=== PATIENT | female | born 1950 | race Caucasian/White ===

== ENCOUNTER → 2016-05-05 | Outpatient (CLI) | payer BC, MEDICARE ==
--- NOTE | 2016-05-05 14:50 | REPMRS ---
Patient History The patient states she had a clinical breast exam in 04/2016. Patient is postmenopausal and has history of cervical cancer at age 48. Family history of uterine cancer in maternal aunt at age 50 or over. Digital Woman Screen Mammo: May 05, 2016 - Exam #: [id number] Bilateral CC and MLO view(s) were taken. Technologist: Marya Arnold, Technologist Prior study comparison: March 27, 2015, bilateral digital mammo screening bilat, performed at [facility]. November 27, 2014, left breast digital mammo diagnostic unilateral, performed at [facility]. March 11, 2014, digital woman screen mammo performed at [facility]. FINDINGS: The breast tissue is heterogeneously dense. This may lower the sensitivity of mammography. There is a moderate amount of heterogeneously dense fibroglandular tissue which is fairly symmetric. There is no interval development of dominant mass, architectural distortion, or clustered microcalcification typical of malignancy. There has been no change in the appearance of the mammogram from the prior studies. ASSESSMENT: BI-RADS/ACR category 1 mammogram. Negative. Recommendation Routine screening mammogram of both breasts in 1 year (for women over age 40). This mammogram was interpreted with the aid of an FDA-approved computer-aided dectection system. Electronically Signed By: Pratik Herron MD 05/05/16 [id number]
== END ==
LOC: M WHC 13:12
PROVIDERS: ATTEND Nurse Practitioner Family
DX: Z12.31 Encounter for screening mammogram for malignant neoplasm of breast (principal)

== ENCOUNTER 2017-02-22 08:20 | Emergency (ER) | payer BC, MEDICARE ==
[~2017-02-22] VITALS: Ht 160 cm; Wt 79.5 kg
[2017-02-22] MEDS ORDERED: ATOR1TAB19 (08:32)
[2017-02-22] MEDS ORDERED: PARO20TA3 (08:32)
[2017-02-22 09:21] LABS: BASO # 0.1 10^3/uL (0.0-0.2); BASO % 0.8 % (0.0-1.0); EOS # 0.2 10^3/uL (0.0-0.50); EOS % 2.3 % (0.0-3.0); IMMATURE GRANULOCYTE % 0.2 % (0-0); LYMPH # 2.3 10^3/uL (1.5-4.5); LYMPH % 36.3 % (24.0-44.0); MEAN CORPUSCULAR HEMOGLOBIN 31.4 pg (27.0-33.0); MEAN CORPUSCULAR HGB CONC 33.4 g/dl (32.0-36.5); MONO # 0.4 10^3/uL (0.0-0.8); MONO % 5.7 % (0.0-5.0); NEUTROPHILS # 3.5 10^3/uL (1.8-7.7); NEUTROPHILS % 54.7 % (36.0-66.0); PLATELET COUNT, AUTOMATED 299 10^3/uL (150-450); RED CELL DISTRIBUTION WIDTH 12.4 % (11.5-14.5); WHITE BLOOD COUNT 6.5 10^3/uL (4.0-10.0)
[2017-02-22 09:44] LABS: ALBUMIN 4.1 GM/DL (3.2-5.2); ALBUMIN/GLOBULIN RATIO 1.14 (1.00-1.93); ALKALINE PHOSPHATASE 102 U/L (45-117); ALT/SGPT 56 U/L (12-78); ANION GAP 7 MEQ/L (8-16); AST/SGOT 23 U/L (7-37); BILIRUBIN,DIRECT < 0.1 MG/DL (0.0-0.2); BILIRUBIN,TOTAL 0.4 MG/DL (0.2-1.0); BLOOD UREA NITROGEN 18 MG/DL (7-18); CALCIUM LEVEL 9.3 MG/DL (8.8-10.2); CARBON DIOXIDE LEVEL 26 MEQ/L (21-32); CHLORIDE LEVEL 109 MEQ/L (98-107); CREATININE FOR GFR 0.78 MG/DL (0.55-1.02); GLOMERULAR FILTRATION RATE > 60.0 (>45); GLUCOSE, FASTING 104 MG/DL (80-110); POTASSIUM SERUM 4.1 MEQ/L (3.5-5.1); SODIUM LEVEL 142 MEQ/L (136-145); TOTAL PROTEIN 7.7 GM/DL (6.4-8.2)
[2017-02-22 12:20] VITALS: BP 142/78
--- NOTE | 2017-02-22 14:22 | ECGEPIP ---
Stationary ECG Study [facility] - ED Test Date: 2017-02-22 Pat Name: SUSAN MEDEROS Department: Room: - Gender: F Machine Dyer: YESICA : 1950 Requested By: SEVERIANO Aburto Order Number: [id number] Reading MD: Tessa Huggins Measurements Intervals [place] Rate: 84 P: 58 NV: 129 QRS: 16 QRSD: 89 T: 45 QT: 404 QTc: 479 Interpretive Statements SINUS RHYTHM POSSIBLE RIGHT VENTRICULAR CONDUCTION DELAY NSTTW ABNORMALITY INCREASED RATE 05/24/12 Electronically Signed On 02-22-2017 14:22:10 EST by Tessa Huggins
== END 2017-02-22 12:37 | disposition home or self-care (01) ==
LOC: M ED 08:20
DX: R11.2 Nausea with vomiting, unspecified (principal); R19.7 Diarrhea, unspecified; F41.1 Generalized anxiety disorder; R94.31 Abnormal electrocardiogram [ECG] [EKG]; I10 Essential (primary) hypertension; E78.5 Hyperlipidemia, unspecified; F43.10 Post-traumatic stress disorder, unspecified; F41.9 Anxiety disorder, unspecified; F32.9 Major depressive disorder, single episode, unspecified; Z79.899 Other long term (current) drug therapy; Z91.018 Allergy to other foods; Z91.013 Allergy to seafood; Z88.7 Allergy status to serum and vaccine

== ENCOUNTER → 2017-02-23 | Outpatient (REF) | payer BC, MEDICARE ==
[~2017-02-23] MED LIST: ATOR1TAB19; PARO20TA3
== END ==
LOC: M LAB REF 17:01
PROVIDERS: ATTEND Nurse Practitioner Adult Health
DX: R35.0 Frequency of micturition (principal)

== ENCOUNTER → 2019-10-18 | Outpatient (REF) | payer MEDICARE ==
[~2019-10-18] MED LIST changes: +AMLO1TAB24; +METO1TAB32; +VENTAER
== END ==
LOC: M LAB REF 16:15
PROVIDERS: ATTEND Nurse Practitioner Adult Health
DX: R11.2 Nausea with vomiting, unspecified (principal); R19.7 Diarrhea, unspecified; R10.11 Right upper quadrant pain

== ENCOUNTER → 2020-01-27 | Outpatient (REF) | payer MEDICARE | LOC: M LAB REF 16:15 | PROVIDERS: ATTEND Nurse Practitioner Adult Health | DX: R35.0 Frequency of micturition (principal) ==

== ENCOUNTER → 2020-04-15 | Outpatient (CLI) | payer MEDICARE ==
[~2020-04-15] MED LIST changes: +BAYE81TA10 PO; +BUSP10TA; +HYDR12.55; +MONT5TAB2; +ROSU10TA6
== END ==
LOC: M LABSMTC 11:40
PROVIDERS: ATTEND Anesthesiology
DX: Z01.812 Encounter for preprocedural laboratory examination (principal); Z20.822 Contact with and (suspected) exposure to COVID-19

== ENCOUNTER 2020-04-20 10:03 | Day surgery (SDC) | payer MEDICARE ==
[~2020-04-20] VITALS: Ht 160 cm; Wt 80.0 kg
[~2020-04-20 10:03] MED LIST changes: +NS 1,000 ML IV ONE
[2020-04-20] MEDS ORDERED: LIDOCAINE 2% 100MG/5ML SDV (FOR ANES.) As Ordered ONE (11:22)
[2020-04-20] MEDS ORDERED: propofoL 200 MG/20 ML VIAL As Ordered ONE (11:22)
--- NOTE | 2020-04-20 11:30 | ROOR ---
Patient Name: Nikki Huertas Procedure Date: 04/20/2020 10:57 AM Date of : 1950 Age: 69 Room: [facility] Gender: Female Note Status: Finalized Procedure: Colonoscopy Indications: Screening for colorectal malignant neoplasm Providers: Odell ALFONSO MD Referring MD: VANIA SAM JR, MD Requesting Provider: Medicines: Monitored Anesthesia Care Complications: No immediate complications. Procedure: Pre-Anesthesia Assessment: - The heart rate, respiratory rate, oxygen saturations, blood pressure, adequacy of pulmonary ventilation, and response to care were monitored throughout the procedure. The Colonoscope was introduced through the anus and advanced to the terminal ileum, with identification of the appendiceal orifice and IC valve. The colonoscopy was performed without difficulty. The patient tolerated the procedure well. The quality of the bowel preparation was good. Findings: The perianal and digital rectal examinations were normal. Three sessile polyps were found in the sigmoid colon, splenic flexure and ascending colon. The polyps were diminutive in size. These polyps were removed with a cold snare. Resection and retrieval were complete. Multiple small-mouthed diverticula were found in the sigmoid colon. Small Internal Hemorrhoids. The exam was otherwise without abnormality on direct and retroflexion views. Impression: - Three diminutive polyps in the sigmoid colon, at the splenic flexure and in the ascending colon, removed with a cold snare. Resected and retrieved. - Diverticulosis in the sigmoid colon. - Small Internal Hemorrhoids. - The examination was otherwise normal on direct and retroflexion views. Recommendation: - Repeat colonoscopy in 5 years for surveillance. Procedure Code(s): --- Professional --- 81229, Colonoscopy, flexible; with removal of tumor(s), polyp(s), or other lesion(s) by snare technique Diagnosis Code(s): --- Professional --- K57.30, Diverticulosis of large intestine without perforation or abscess without bleeding K63.5, Polyp of colon Z12.11, Encounter for screening for malignant neoplasm of colon CPT copyright 2019 [employer]. All rights reserved. The codes documented in this report are preliminary and upon overhead crane operator review may be revised to meet current compliance requirements. Odell Alfonso MD Odell ALFONSO MD 04/20/2020 11:30:42 AM Electronically signed by Odell ALFONSO MD Number of Addenda: 0 Note Initiated On: 04/20/2020 10:57 AM Estimated Blood Loss: Estimated blood loss: none.
[2020-04-20 11:55] VITALS: BP 166/93
== END 2020-04-20 12:00 | disposition home or self-care (01) ==
LOC: M OPP 10:03
PROVIDERS: ATTEND Internal Medicine Gastroenterology
DX: Z12.11 Encounter for screening for malignant neoplasm of colon (principal); K63.5 Polyp of colon; K57.30 Diverticulosis of large intestine without perforation or abscess without bleeding; K64.8 Other hemorrhoids; I10 Essential (primary) hypertension; E78.5 Hyperlipidemia, unspecified; F32.9 Major depressive disorder, single episode, unspecified; F43.10 Post-traumatic stress disorder, unspecified; Z86.59 Personal history of other mental and behavioral disorders; Z88.6 Allergy status to analgesic agent; Z91.013 Allergy to seafood; Z91.018 Allergy to other foods; Z79.82 Long term (current) use of aspirin; Z79.899 Other long term (current) drug therapy; Z85.42 Personal history of malignant neoplasm of other parts of uterus

== ENCOUNTER → 2020-07-21 | Outpatient (CLI) | payer MEDICARE ==
[~2020-07-21] MED LIST changes: +MONT10TA10; -MONT5TAB2; -NS 1,000 ML IV ONE
--- NOTE | 2020-07-21 11:00 | REP ---
INDICATION: PAIN COMPARISON: None. TECHNIQUE: Internal rotation, external rotation, and Y view. FINDINGS: Advanced osteoarthritic degenerative changes are appreciated. Findings include osteophytosis and cortical irregularities at the acromioclavicular joint as well as involving the glenohumeral joint. 8 mm curvilinear corticated loose body identified adjacent to the posterior humeral head on internal rotation view. The subacromial space is decreased to approximately 7 mm. No acute fracture or dislocation identified IMPRESSION: Early advanced osteoarthritic degenerative changes <Electronically signed by Ja Steen > 07/21/20 1055
== END ==
LOC: M WUC 10:29
PROVIDERS: ATTEND Nurse Practitioner Adult Health
DX: M25.511 Pain in right shoulder (principal)

== ENCOUNTER → 2020-09-02 | Outpatient (CLI) | payer MEDICARE ==
--- NOTE | 2020-09-03 16:47 | SLEEPCENT ---
NOCTURNAL POLYSOMNOGRAPHY DATE: 09/02/2020 ORDERED BY: BOONE Montalvo Nocturnal polysomnography was performed for evaluation of sleep physiology in this patient with excessive somnolence and nonrestorative sleep who has comorbidity of hypertension. 8 hours and 15 minutes of data were reviewed. There were 262.5 minutes of sleep identified. Sleep latency was prolonged at 103.5 minutes. REM latency was prolonged at 273 minutes. Sleep architecture showed poor progression with one brief REM cycle. Overall sleep efficiency was 57.5%. The electrocardiogram showed underlying sinus rhythm with frequent ectopy. Average heart rate of 60 beats per minute; rate range 40 to 80. EEG showed normal waveforms for wake and sleep. There were 212 respiratory events identified of 10 seconds in duration or greater for an apnea-hypopnea index of 48.5. The events were obstructive, not exclusive to sleep stage nor body posture. Arousals from respiratory events occurred 13 times per hour and oxygen desaturations were seen into the low 80s. There was some activity in the limb leads, but limb movement arousal were only 2.7 per hour. IMPRESSION: Severe obstructive sleep apnea syndrome (G47.33), apnea-hypopnea index 48.5. RECOMMENDATION: The patient should be encouraged to return [facility]. In the interim, alcohol and sedative avoidance should be practiced and caution exercised during the operation of motor vehicles.
== END ==
LOC: M SLEEP 20:00
PROVIDERS: ATTEND Nurse Practitioner Family
DX: G47.33 Obstructive sleep apnea (adult) (pediatric) (principal)

== ENCOUNTER → 2020-09-24 | Outpatient (CLI) | payer MEDICARE ==
--- NOTE | 2020-09-28 14:31 | SLEEPCENT ---
NOCTURNAL POLYSOMNOGRAPHY CPAP TITRATION DATE: 09/24/2020 ORDERED BY: Kailyn Masterson. Nocturnal polysomnography was performed for the titration of pressure therapy in this patient with severe obstructive sleep apnea syndrome, apnea-hypopnea index 48.5. For testing, the patient was fit with a ResMed F30 full face mask of medium size. 4 cm of water pressure were applied to the circuit, and the lights were extinguished. 8 hours and 23 minutes of data were reviewed. There were 289 minutes of sleep identified. Sleep latency was normal at 31.5 minutes. REM latency was prolonged at 286 minutes. Sleep architecture improved late in the study on optimal pressure therapy. Overall sleep efficiency was only 58%. The electrocardiogram showed what appeared to be a supraventricular rhythm with frequent ectopy and occasions of bigeminy were seen. Average heart rate is 80 beats per minute. EEG showed normal waveforms for awake and sleep. Persistent respiratory events prompted an increase in CPAP pressure, and despite optimal mask fit and minimal air leak, the patient required a change to a bilevel device. Best sleep was seen on a bilevel pressure therapy of 14/10. However, later in the study, the patient experienced some obstructive events when she rolled supine. Insufficient time was available for additional titration. IMPRESSION: Obstructive sleep apnea syndrome (G47.33). RECOMMENDATION: Nightly use of bilevel pressure therapy, inspiratory pressure 14 over expiratory of 10 is recommended with measures to avoid sleep in the supine position. Should sleep symptoms persist, retitration may be necessary. cc: Lenore Payne NP
== END ==
LOC: M SLEEP 19:51
PROVIDERS: ATTEND Nurse Practitioner Family
DX: G47.33 Obstructive sleep apnea (adult) (pediatric) (principal)

== ENCOUNTER → 2020-12-17 | Outpatient (CLI) | payer MEDICARE ==
--- NOTE | 2020-12-21 14:33 | SLEEPCENT ---
DATE: 12/17/2020 PROCEDURE: Nocturnal polysomnography with CPAP retitration. ORDERED BY: BRISEIDA Montalvo. Nocturnal polysomnography was performed for the retitration of pressure therapy in this patient with obstructive sleep apnea syndrome. For testing, a ResMed Quattro full face mask of medium size was used. An initial bilevel pressure of 10/6 was applied to the circuit, and the lights were extinguished. 8 hours and 53 minutes of data were reviewed. There were 385 minutes of sleep identified. Sleep latency was normal at 28 minutes. REM latency was delayed at 342.5 minutes. Sleep architecture improved with optimal pressure therapy. There was 1 REM cycle noted late in the study. Overall sleep efficiency 73.4%. The electrocardiogram showed a sinus rhythm with an average heart rate of 60 beats per minute, frequent PVCs, and episodes of bigeminy were noted early in the study. EEG showed fairly normal waveforms for wake and sleep. No focal events were identified. Persistent respiratory events prompted increases in pressure therapy. Best sleep was seen at an inspiratory pressure of 19 over expiratory of 14 with which the patient slept through REM without respiratory event or oxygen desaturation. There was some limb activity noted in the EMG leads. Limb movement arousal index on this occasion was 12.6. IMPRESSION: Obstructive sleep apnea syndrome (G47.33). RECOMMENDATION: Nightly use of bilevel pressure therapy, inspiratory 19 over expiratory 14. cc: Lenore Payne NP
== END ==
LOC: M SLEEP 20:00
PROVIDERS: ATTEND Nurse Practitioner Family
DX: G47.33 Obstructive sleep apnea (adult) (pediatric) (principal)

== ENCOUNTER → 2021-03-10 | Outpatient (CLI) | payer MEDICARE ==
[~2021-03-10] MED LIST changes: -MONT10TA10; +MONT10TA97
== END ==
LOC: M WHC 13:30
PROVIDERS: ATTEND Nurse Practitioner Adult Health
DX: Z12.31 Encounter for screening mammogram for malignant neoplasm of breast (principal)

== ENCOUNTER → 2021-07-21 | Outpatient (REF) | payer MEDICARE, MEDICAID | LOC: M LAB REF 12:20 | PROVIDERS: ATTEND Nurse Practitioner Adult Health | DX: M25.551 Pain in right hip (principal) ==

== ENCOUNTER → 2021-09-11 | Outpatient (CLI) | payer MEDICARE, MEDICAID | LOC: M EKG 10:18 | PROVIDERS: ATTEND Nurse Practitioner Adult Health | DX: I49.3 Ventricular premature depolarization (principal) ==

== ENCOUNTER → 2021-10-29 | Outpatient (CLI) | payer MEDICARE, MEDICAID | LOC: M WUC 15:22 | PROVIDERS: ATTEND Physician Assistant | DX: S40.012A Contusion of left shoulder, initial encounter (principal); S60.131A Contusion of right middle finger with damage to nail, initial encounter; M25.741 Osteophyte, right hand; M19.012 Primary osteoarthritis, left shoulder ==

== ENCOUNTER → 2022-01-20 | Outpatient (REF) | payer MEDICARE, MEDICAID ==
[2022-01-20 17:17] LABS: C REACTIVE PROTEIN QUANTITATIV < 0.30 MG/DL (0.00-0.30); RHEUMATOID FACTOR QUANT < 10.0 IU/ML (<15.0)
[2022-01-24 16:07] LABS: ANCA-ATYPICAL <1:20 titer (Neg:<1:20); CYTOPLASMIC NEUTROP AB ANCA-C <1:20 titer (Neg:<1:20); PERINUCLEAR AB ANCA-P <1:20 titer (Neg:<1:20)
== END ==
LOC: M LAB REF 16:07
PROVIDERS: ATTEND Nurse Practitioner Adult Health
DX: I10 Essential (primary) hypertension (principal); J84.178 Other interstitial pulmonary diseases with fibrosis in diseases classified elsewhere

== ENCOUNTER → 2022-02-16 | Outpatient (CLI) | payer MEDICARE, MEDICAID ==
[~2022-02-16] MED LIST changes: +ISOVUE-370 76% 100ML VIAL As Ordered ONE
== END ==
LOC: M RAD 12:32
PROVIDERS: ATTEND Internal Medicine Pulmonary Disease
DX: J45.40 Moderate persistent asthma, uncomplicated (principal); R91.1 Solitary pulmonary nodule
CPT/HCPCS: 71260; Q9967

== ENCOUNTER → 2022-03-16 | Outpatient (CLI) | payer MEDICARE, MEDICAID ==
[~2022-03-16] MED LIST changes: -ISOVUE-370 76% 100ML VIAL As Ordered ONE
== END ==
LOC: M WHC 11:55
PROVIDERS: ATTEND Nurse Practitioner Adult Health
DX: Z12.31 Encounter for screening mammogram for malignant neoplasm of breast (principal)

== ENCOUNTER → 2022-06-04 | Outpatient (REF) | payer MEDICARE, MEDICAID | LOC: M WUC 18:49 | PROVIDERS: ATTEND Physician Assistant | DX: R30.0 Dysuria (principal) ==

== ENCOUNTER → 2022-08-24 | Outpatient (REF) | payer MEDICARE, MEDICAID ==
[2022-08-26 04:08] LABS: LDL DIRECT 134 mg/dL (0-99)
== END ==
LOC: M LAB REF 10:04
PROVIDERS: ATTEND Internal Medicine
DX: E78.2 Mixed hyperlipidemia (principal)

== ENCOUNTER → 2022-08-24 | Outpatient (REF) | payer MEDICARE, MEDICAID | LOC: M LAB REF 16:14 | PROVIDERS: ATTEND Nurse Practitioner Adult Health | DX: N39.41 Urge incontinence (principal) ==

== ENCOUNTER 2022-09-10 23:11 | Emergency (ER) | payer MEDICARE, MEDICAID ==
[2022-09-11 00:54] LABS: BASO # 0.1 10^3/uL (0.0-0.2); BASO % 0.6 % (0.0-1.0); EOS # 0.3 10^3/uL (0.0-0.5); EOS % 3.9 % (0.0-3.0); HEMATOCRIT 38.2 % (36.0-47.0); LYMPH # 3.4 10^3/uL (1.5-5.0); LYMPH % 39.4 % (24.0-44.0); MEAN CORPUSCULAR HEMOGLOBIN 32.3 pg (27.0-33.0); MONO # 0.7 10^3/uL (0.0-0.8); MONO % 8.1 % (2.0-8.0); NEUTROPHILS # 4.1 10^3/uL (1.5-8.5); NEUTROPHILS % 47.8 % (36.0-66.0); PLATELET COUNT, AUTOMATED 296 10^3/uL (150-450); RED BLOOD COUNT 4.02 10^6/uL (4.00-5.40); WHITE BLOOD COUNT 8.6 10^3/uL (4.0-10.0)
[2022-09-11 00:55] LABS: ALBUMIN 3.8 G/DL (3.2-5.2); ALKALINE PHOSPHATASE 109 U/L (46-116); ALT/SGPT 55 U/L (7.0-40); AST/SGOT 36 U/L (<34); BILIRUBIN,TOTAL 0.3 MG/DL (0.3-1.2); BLOOD UREA NITROGEN 13 MG/DL (9-23); CALCIUM LEVEL 8.9 MG/DL (8.3-10.6); CARBON DIOXIDE LEVEL 29 MMOL/L (20-31); CHLORIDE LEVEL 103 MMOL/L (98-107); CREATININE FOR GFR 0.73 MG/DL (0.55-1.30); GLOMERULAR FILTRATION RATE > 60.0 (>39); GLUCOSE, FASTING 101 MG/DL (74-106); POTASSIUM SERUM 3.7 MMOL/L (3.5-5.1); SODIUM LEVEL 141 MMOL/L (136-145); TOTAL PROTEIN 6.8 G/DL (5.7-8.2)
[2022-09-11 02:44] VITALS: BP 149/70
[2022-09-11] MEDS ORDERED: NS 1,000 ML IV ONE (03:05)
[2022-09-11] MEDS ORDERED: ONDANSETRON 4MG 2ML VIAL IV ONE (03:05)
[2022-09-11] MEDS ORDERED: ONDANSETRON 4MG ORAL DISINTEGRATING TAB PO ONE (03:25)
[2022-09-11] MEDS ORDERED: PROM25TA12 PO (03:29)
[2022-09-11] MEDS ORDERED: ONDA4TAB6 PO (03:29)
== END 2022-09-11 09:48 | disposition home or self-care (01) ==
LOC: M ED 23:11
DX: K52.9 Noninfective gastroenteritis and colitis, unspecified (principal); I10 Essential (primary) hypertension; J45.909 Unspecified asthma, uncomplicated; Z88.7 Allergy status to serum and vaccine; Z91.013 Allergy to seafood; Z91.010 Allergy to peanuts; Z79.02 Long term (current) use of antithrombotics/antiplatelets; Z79.52 Long term (current) use of systemic steroids; Z79.899 Other long term (current) drug therapy

== ENCOUNTER → 2022-09-12 | Outpatient (REF) | payer MEDICARE, MEDICAID ==
[~2022-09-12] MED LIST changes: +ONDA4TAB6 PO; +PROM25TA12 PO
== END ==
LOC: M LAB REF 13:33
PROVIDERS: ATTEND Emergency Medicine
DX: K52.9 Noninfective gastroenteritis and colitis, unspecified (principal)

== ENCOUNTER → 2022-09-22 | Outpatient (CLI) | payer MEDICARE, MEDICAID | LOC: M WHC 10:12 | PROVIDERS: ATTEND Nurse Practitioner Adult Health | DX: M81.0 Age-related osteoporosis without current pathological fracture (principal) ==

== ENCOUNTER → 2022-10-06 | Outpatient (CLI) | payer MEDICARE, MEDICAID ==
[2022-10-06 17:38] LABS: ALBUMIN 3.8 G/DL (3.2-5.2); BILIRUBIN,DIRECT 0.1 MG/DL (<0.4); BILIRUBIN,TOTAL 0.4 MG/DL (0.3-1.2); TOTAL PROTEIN 7.2 G/DL (5.7-8.2)
== END ==
LOC: M PLALAB 15:50
PROVIDERS: ATTEND Physician Assistant Medical
DX: R74.01 Elevation of levels of liver transaminase levels (principal)

== ENCOUNTER 2022-12-23 18:58 | Emergency (ER) | payer MEDICARE, MEDICAID ==
[~2022-12-23] VITALS: Ht 160 cm; Wt 85.5 kg
[2022-12-23 18:58] VITALS: BP 155/68; TEMP 98.7; O2SAT 97
[~2022-12-23 18:58] MED LIST changes: -ATOR1TAB19; +ATOR1TAB19 PO; -BUSP10TA; +BUSP10TA PO; +CYCL5TAB PO; +FAMO20TA PO; -HYDR12.55; +HYDR12.55 PO; +LEVOTAB10 PO; -METO1TAB32; +METO1TAB32 PO; -MONT10TA97; +MONT10TA97 PO; -PARO20TA3; +PARO20TA3 PO; -VENTAER; +VENTAER INH
[2022-12-23 19:32] LABS: BASO % 0.3 % (0.0-1.0); EOS % 0.1 % (0.0-3.0); HEMATOCRIT 40.1 % (36.0-47.0); HEMOGLOBIN 13.9 g/dl (12.0-15.5); LYMPH # 2.3 10^3/uL (1.5-5.0); LYMPH % 19.3 % (24.0-44.0); MEAN CORPUSCULAR HEMOGLOBIN 32.6 pg (27.0-33.0); MEAN CORPUSCULAR HGB CONC 34.7 g/dl (32.0-36.5); MEAN CORPUSCULAR VOLUME 93.9 fl (80.0-96.0); MONO # 0.7 10^3/uL (0.0-0.8); MONO % 6.2 % (2.0-8.0); NEUTROPHILS # 8.6 10^3/uL (1.5-8.5); NEUTROPHILS % 73.7 % (36.0-66.0); PLATELET COUNT, AUTOMATED 355 10^3/uL (150-450); RED BLOOD COUNT 4.27 10^6/uL (4.00-5.40); WHITE BLOOD COUNT 11.7 10^3/uL (4.0-10.0)
[2022-12-23 19:45] LABS: INR 0.93; PROTHROMBIN TIME 12.2 SECONDS (12.5-14.5)
[2022-12-23 19:55] LABS: LIPASE 36 U/L (12-53)
[2022-12-23 19:57] LABS: ALBUMIN 3.8 G/DL (3.2-5.2); ALKALINE PHOSPHATASE 120 U/L (46-116); ALT/SGPT 52 U/L (7.0-40); AST/SGOT 27 U/L (<34); BILIRUBIN,DIRECT < 0.1 MG/DL (<0.4); BILIRUBIN,TOTAL 0.3 MG/DL (0.3-1.2); CPK CREATINE PHOSPHOKINASE 52 U/L (34-145); MB/CK RELATIVE INDEX 1.92 (< OR =4); TOTAL PROTEIN 7.5 G/DL (5.7-8.2)
[2022-12-23 20:26] LABS: BLOOD UREA NITROGEN 21 MG/DL (9-23); CALCIUM LEVEL 9.3 MG/DL (8.3-10.6); CARBON DIOXIDE LEVEL 26 MMOL/L (20-31); CHLORIDE LEVEL 103 MMOL/L (98-107); CREATININE FOR GFR 0.68 MG/DL (0.55-1.30); GLOMERULAR FILTRATION RATE > 60.0 (>39); GLUCOSE, FASTING 147 MG/DL (74-106); POTASSIUM SERUM 3.6 MMOL/L (3.5-5.1); SODIUM LEVEL 139 MMOL/L (136-145)
[2022-12-23] MEDS ORDERED: FURO40TA2 PO (22:29)
== END 2022-12-23 23:13 | disposition home or self-care (01) ==
LOC: M ED 18:58
DX: R53.1 Weakness (principal); R53.83 Other fatigue; I45.10 Unspecified right bundle-branch block; I45.81 Long QT syndrome; I10 Essential (primary) hypertension; E78.5 Hyperlipidemia, unspecified; F32.A Depression, unspecified; K21.9 Gastro-esophageal reflux disease without esophagitis; I50.22 Chronic systolic (congestive) heart failure; Z88.8 Allergy status to other drugs, medicaments and biological substances; Z91.013 Allergy to seafood; Z91.010 Allergy to peanuts; Z79.52 Long term (current) use of systemic steroids; Z79.02 Long term (current) use of antithrombotics/antiplatelets; Z79.899 Other long term (current) drug therapy

== ENCOUNTER → 2022-12-26 | Outpatient (CLI) | payer MEDICARE, MEDICAID ==
[~2022-12-26] MED LIST changes: +FURO40TA2 PO
[2022-12-26 15:22] LABS: BLOOD UREA NITROGEN 19 MG/DL (9-23); CALCIUM LEVEL 9.6 MG/DL (8.3-10.6); CARBON DIOXIDE LEVEL 28 MMOL/L (20-31); CHLORIDE LEVEL 103 MMOL/L (98-107); CREATININE FOR GFR 0.61 MG/DL (0.55-1.30); GLOMERULAR FILTRATION RATE > 60.0 (>39); GLUCOSE, FASTING 103 MG/DL (74-106); POTASSIUM SERUM 3.4 MMOL/L (3.5-5.1); SODIUM LEVEL 139 MMOL/L (136-145)
== END ==
LOC: M LAB 13:36
PROVIDERS: ATTEND Emergency Medicine
DX: E87.6 Hypokalemia (principal); Z79.899 Other long term (current) drug therapy

== ENCOUNTER 2023-02-03 10:46 | Day surgery (SDC) | payer MEDICARE, MEDICAID ==
[~2023-02-03] VITALS: Ht 160 cm; Wt 86.3 kg
[~2023-02-03 10:46] MED LIST changes: +FURO20TA2 PO; +NS 1,000 ML IV ONE; +ROSU10TA6 PO
[2023-02-03] MEDS ORDERED: DOXY50CA51 PO (11:13)
[2023-02-03] MEDS ORDERED: propofoL 500 MG/50 ML VIAL As Ordered ONE (12:00)
[2023-02-03] MEDS ORDERED: LIDOCAINE 2% 100MG/5ML SDV (FOR ANES.) As Ordered ONE (12:00)
[2023-02-03] MEDS ORDERED: fentaNYL 100 MCG/2 ML INJECTION As Ordered ONE (12:00)
[2023-02-03 12:29] VITALS: TEMP 96.8
[2023-02-03 12:50] VITALS: BP 127/65; O2SAT 92
== END 2023-02-03 12:56 | disposition home or self-care (01) ==
LOC: M OPP 10:46
PROVIDERS: ATTEND Internal Medicine Gastroenterology
DX: K63.5 Polyp of colon (principal); K57.30 Diverticulosis of large intestine without perforation or abscess without bleeding; K64.8 Other hemorrhoids; K20.90 Esophagitis, unspecified without bleeding; K30 Functional dyspepsia; K31.A19 Gastric intestinal metaplasia without dysplasia, unspecified site; K52.89 Other specified noninfective gastroenteritis and colitis; Z79.02 Long term (current) use of antithrombotics/antiplatelets; Z79.51 Long term (current) use of inhaled steroids; Z79.52 Long term (current) use of systemic steroids; Z79.82 Long term (current) use of aspirin; Z79.899 Other long term (current) drug therapy; G47.30 Sleep apnea, unspecified; Z99.89 Dependence on other enabling machines and devices; E11.9 Type 2 diabetes mellitus without complications; Z88.7 Allergy status to serum and vaccine; Z91.013 Allergy to seafood; Z91.018 Allergy to other foods
CPT/HCPCS: 43239; 45380; 45385; 88305; J3010

== ENCOUNTER → 2023-04-25 | Outpatient (CLI) | payer MEDICARE, MEDICAID ==
[~2023-04-25] MED LIST changes: +DOXY50CA51 PO; -NS 1,000 ML IV ONE
== END ==
LOC: M WHC 09:35
PROVIDERS: ATTEND Internal Medicine
DX: Z12.31 Encounter for screening mammogram for malignant neoplasm of breast (principal)

== ENCOUNTER 2023-05-12 21:04 | Emergency (ER) | payer MEDICARE, MEDICAID ==
[~2023-05-12] VITALS: Ht 160 cm; Wt 86.5 kg
[2023-05-12 21:04] VITALS: TEMP 97.3; O2SAT 98
[2023-05-13 00:37] VITALS: BP 154/87
[2023-05-13] MEDS ORDERED: carBAMazepine 200MG TABLET PO ONE (00:45)
[2023-05-13] MEDS ORDERED: CARB20TA PO (00:47)
== END 2023-05-13 01:32 | disposition home or self-care (01) ==
LOC: M ED 21:04
DX: G50.0 Trigeminal neuralgia (principal); E11.9 Type 2 diabetes mellitus without complications; I10 Essential (primary) hypertension; E78.5 Hyperlipidemia, unspecified; Z88.7 Allergy status to serum and vaccine; Z91.013 Allergy to seafood; Z79.52 Long term (current) use of systemic steroids; Z79.82 Long term (current) use of aspirin; Z79.899 Other long term (current) drug therapy

== ENCOUNTER 2023-08-21 12:11 | Emergency (ER) | payer MEDICARE, MEDICAID ==
[~2023-08-21] VITALS: Ht 160 cm; Wt 84.9 kg
[~2023-08-21 12:11] MED LIST changes: +CARB20TA PO; +DOXY50CA35 PO; -DOXY50CA51 PO; -ROSU10TA6; -ROSU10TA6 PO; +ROSU10TA61; +ROSU10TA61 PO
[2023-08-21] MEDS ORDERED: AMOX875T (12:19)
[2023-08-21] MEDS ORDERED: GABA-282 (12:19)
[2023-08-21] MEDS ORDERED: METO1TAB7 PO (12:19)
[2023-08-21] MEDS ORDERED: ADVA230A INH (12:19)
[2023-08-21] MEDS: PANTOPRAZOLE 40MG VIAL IV ONE (12:40)
[2023-08-21] MEDS: MAALOX 30 ML SUSP *UDC PO ONE (12:40)
[2023-08-21 12:45] VITALS: BP 189/93; TEMP 97.6
[2023-08-21] MEDS: NITROGLYCERIN 2% OINT 1 GM *U/D* PKT TOP ONE (12:45)
[2023-08-21 12:51] LABS: BASO # 0.1 10^3/uL (0.0-0.2); BASO % 1.3 % (0.0-1.0); EOS # 0.2 10^3/uL (0.0-0.5); EOS % 2.7 % (0.0-3.0); HEMOGLOBIN 13.5 g/dl (12.0-15.5); LYMPH # 2.5 10^3/uL (1.5-5.0); LYMPH % 39.1 % (24.0-44.0); MEAN CORPUSCULAR HEMOGLOBIN 32.1 pg (27.0-33.0); MEAN CORPUSCULAR HGB CONC 34.6 g/dl (32.0-36.5); MEAN CORPUSCULAR VOLUME 92.6 fl (80.0-96.0); MONO # 0.6 10^3/uL (0.0-0.8); MONO % 8.8 % (2.0-8.0); NEUTROPHILS # 3.1 10^3/uL (1.5-8.5); NEUTROPHILS % 47.8 % (36.0-66.0); PLATELET COUNT, AUTOMATED 337 10^3/uL (150-450); RED BLOOD COUNT 4.21 10^6/uL (4.00-5.40); WHITE BLOOD COUNT 6.4 10^3/uL (4.0-10.0)
[2023-08-21 13:06] LABS: D-DIMER QUANT 0.54 ug/mL (<0.5); INR 0.97; PROTHROMBIN TIME 12.6 SECONDS (12.5-14.5)
[2023-08-21 13:19] LABS: CK-MB VALUE MASS < 1.0 NG/ML (<3.6); LIPASE 26 U/L (12-53)
[2023-08-21 13:20] LABS: C REACTIVE PROTEIN QUANTITATIV < 0.40 MG/DL (<1.0)
[2023-08-21 13:22] LABS: ALBUMIN 3.8 G/DL (3.2-5.2); ALKALINE PHOSPHATASE 111 U/L (46-116); ALT/SGPT 44 U/L (7.0-40); AST/SGOT 29 U/L (<34); BILIRUBIN,DIRECT 0.1 MG/DL (<0.4); BILIRUBIN,TOTAL 0.4 MG/DL (0.3-1.2); BLOOD UREA NITROGEN 12 MG/DL (9-23); CALCIUM LEVEL 9.5 MG/DL (8.3-10.6); CARBON DIOXIDE LEVEL 27 MMOL/L (20-31); CHLORIDE LEVEL 107 MMOL/L (98-107); CREATININE FOR GFR 0.63 MG/DL (0.55-1.30); GLOMERULAR FILTRATION RATE > 60.0 (>39); GLUCOSE, FASTING 108 MG/DL (74-106); MAGNESIUM LEVEL 2.1 MG/DL (1.8-2.4); SODIUM LEVEL 142 MMOL/L (136-145); TOTAL PROTEIN 7.1 G/DL (5.7-8.2)
[2023-08-21 13:26] LABS: CPK CREATINE PHOSPHOKINASE 55 U/L (34-145); MB/CK RELATIVE INDEX 1.81 (< OR =4)
[2023-08-21 13:28] LABS: PROCALCITONIN <0.04 ng/ml
[2023-08-21] MEDS ORDERED: ISOVUE-370 76% 100ML VIAL As Ordered ONE (13:28)
[2023-08-21] MEDS: METOPROLOL TART 25 MG TABLET PO ONE (13:35)
[2023-08-21 15:01] LABS: CK-MB VALUE MASS < 1.0 NG/ML (<3.6)
[2023-08-21 15:02] LABS: CPK CREATINE PHOSPHOKINASE 52 U/L (34-145); MB/CK RELATIVE INDEX 1.92 (< OR =4)
[2023-08-21] MEDS ORDERED: AZEL1SPR3 NARES (15:16)
[2023-08-21] MEDS ORDERED: ZYRT10TA12 PO (15:16)
[2023-08-21] MEDS ORDERED: HOME MED LIST COMPLETE! XX SCH (15:20)
[2023-08-21 15:30] VITALS: BP 148/75; O2SAT 95
[2023-08-21] MEDS ORDERED: PROT1TAB2 PO (15:42)
== END 2023-08-21 16:15 | disposition home or self-care (01) ==
LOC: M ED 12:11
DX: K20.90 Esophagitis, unspecified without bleeding (principal); I10 Essential (primary) hypertension; I49.3 Ventricular premature depolarization; I45.10 Unspecified right bundle-branch block; I45.81 Long QT syndrome; Z88.7 Allergy status to serum and vaccine; Z91.010 Allergy to peanuts; Z91.013 Allergy to seafood; Z79.52 Long term (current) use of systemic steroids; Z79.82 Long term (current) use of aspirin; Z79.899 Other long term (current) drug therapy
CPT/HCPCS: 71045; 71275; 80048; 80076; 82550; 82553; 83690; 83735; 84145; 84484; 85025; 85379; 85610; 86140; 87486; 87581; 87633; 87798; 93005; 93041; 94760; 96374; 99285; C9113; Q9967

== ENCOUNTER → 2023-08-30 | Outpatient (REF) | payer MEDICARE, MEDICAID ==
[~2023-08-30] MED LIST changes: +ADVA230A INH; +AMOX875T; +AZEL1SPR3 NARES; +GABA-282; +METO1TAB7 PO; +PROT1TAB2 PO; +ZYRT10TA12 PO
[2023-09-01 08:39] LABS: LDL DIRECT 152 mg/dL (0-99)
== END ==
LOC: M LAB REF 13:15
PROVIDERS: ATTEND Physician Assistant Medical
DX: E78.2 Mixed hyperlipidemia (principal)

== ENCOUNTER 2023-12-29 14:00 | Emergency (ER) | payer MEDICARE, MEDICAID ==
[~2023-12-29] VITALS: Ht 160 cm; Wt 86.5 kg
[~2023-12-29 14:00] MED LIST changes: +ONDA-282 PO; -ONDA4TAB6 PO
[2023-12-29] MEDS: KETOROLAC 30 MG/ML 1ML VIAL IV ONE (16:39)
[2023-12-29] MEDS: ACETAMINOPHEN 500 MG TAB PO ONE (16:40)
[2023-12-29] MEDS: METOCLOPRAMIDE INJ 10MG/2ML VIAL IV ONE (16:40)
[2023-12-29 17:13] LABS: BASO # 0.1 10^3/uL (0.0-0.2); BASO % 0.7 % (0.0-1.0); EOS # 0.3 10^3/uL (0.0-0.5); EOS % 3.7 % (0.0-3.0); HEMATOCRIT 41.6 % (36.0-47.0); LYMPH # 3.3 10^3/uL (1.5-5.0); LYMPH % 42.7 % (24.0-44.0); MEAN CORPUSCULAR HEMOGLOBIN 32.4 pg (27.0-33.0); MEAN CORPUSCULAR HGB CONC 33.7 g/dl (32.0-36.5); MEAN CORPUSCULAR VOLUME 96.3 fl (80.0-96.0); MONO # 0.6 10^3/uL (0.0-0.8); MONO % 8.4 % (2.0-8.0); NEUTROPHILS # 3.4 10^3/uL (1.5-8.5); NEUTROPHILS % 44.2 % (36.0-66.0); PLATELET COUNT, AUTOMATED 311 10^3/uL (150-450); RED BLOOD COUNT 4.32 10^6/uL (4.00-5.40); WHITE BLOOD COUNT 7.7 10^3/uL (4.0-10.0)
[2023-12-29 17:26] LABS: ERYTHROCYTE SEDIMENTATION RATE 26 mm/hr (0-30)
[2023-12-29 17:27] LABS: BLOOD UREA NITROGEN 13 MG/DL (9-23); CALCIUM LEVEL 9.8 MG/DL (8.3-10.6); CARBON DIOXIDE LEVEL 32 MMOL/L (20-31); CHLORIDE LEVEL 106 MMOL/L (98-107); CREATININE FOR GFR 0.75 MG/DL (0.55-1.30); GLOMERULAR FILTRATION RATE > 60.0 (>39); GLUCOSE, FASTING 88 MG/DL (74-106); POTASSIUM SERUM 4.3 MMOL/L (3.5-5.1); SODIUM LEVEL 139 MMOL/L (136-145)
[2023-12-29 18:02] VITALS: BP 115/56; TEMP 96.9; O2SAT 97
[2023-12-29] MEDS ORDERED: ACET325C5 PO (18:04)
[2023-12-29] MEDS ORDERED: REGL10TA6 PO (18:04)
== END 2023-12-29 18:27 | disposition home or self-care (01) ==
LOC: M ED 14:00
DX: J01.90 Acute sinusitis, unspecified (principal); R51.9 Headache, unspecified; I10 Essential (primary) hypertension; J45.909 Unspecified asthma, uncomplicated; F32.A Depression, unspecified; Z88.7 Allergy status to serum and vaccine; Z91.013 Allergy to seafood; Z91.018 Allergy to other foods; Z79.82 Long term (current) use of aspirin; Z79.52 Long term (current) use of systemic steroids; Z79.899 Other long term (current) drug therapy
CPT/HCPCS: 70450; 80048; 85025; 85652; 87486; 87581; 87633; 87798; 96374; 96375; 99283; J1885; J2765

== ENCOUNTER 2024-03-11 13:49 | Emergency (ER) | payer MEDICARE, MEDICAID ==
[~2024-03-11] VITALS: Ht 160 cm; Wt 88.2 kg
[~2024-03-11 13:49] MED LIST changes: +ACET325C5 PO; -CYCL5TAB PO; +CYCL5TAB4 PO; -DOXY50CA35 PO; +DOXY50CA50 PO; +GABA-1172; -GABA-282; +REGL10TA6 PO
[2024-03-11] MEDS ORDERED: ARIC1TAB PO (14:17)
[2024-03-11] MEDS ORDERED: NAPR220C14 PO (14:17)
[2024-03-11] MEDS ORDERED: ZONI50CA PO (15:54)
[2024-03-11 16:41] LABS: HEMOGLOBIN 13.3 g/dl (12.0-15.5); IONIZED CALCIUM 4.8 MG/DL (4.5-5.3); MEAN CORPUSCULAR HEMOGLOBIN 32.4 pg (27.0-33.0); MEAN CORPUSCULAR HGB CONC 34.1 g/dl (32.0-36.5); MEAN CORPUSCULAR VOLUME 94.9 fl (80.0-96.0); PLATELET COUNT, AUTOMATED 302 10^3/uL (150-450); RED BLOOD COUNT 4.11 10^6/uL (4.00-5.40); WHITE BLOOD COUNT 8.1 10^3/uL (4.0-10.0)
[2024-03-11 17:01] LABS: ALKALINE PHOSPHATASE 105 U/L (35-104); ALT/SGPT 55 U/L (7.0-40); AST/SGOT 30 U/L (<34); BILIRUBIN,DIRECT < 0.1 MG/DL (<0.4); BILIRUBIN,TOTAL 0.3 MG/DL (0.3-1.2); BLOOD UREA NITROGEN 12 MG/DL (9-23); CALCIUM LEVEL 9.9 MG/DL (8.3-10.6); CARBON DIOXIDE LEVEL 24 MMOL/L (20-31); CHLORIDE LEVEL 107 MMOL/L (98-107); CREATININE FOR GFR 0.65 MG/DL (0.55-1.30); GLOMERULAR FILTRATION RATE > 60.0 (>39); GLUCOSE, FASTING 101 MG/DL (74-106); MAGNESIUM LEVEL 2.2 MG/DL (1.8-2.4); PHOSPHORUS LEVEL 3.8 MG/DL (2.4-5.1); POTASSIUM SERUM 3.7 MMOL/L (3.5-5.1); SODIUM LEVEL 142 MMOL/L (136-145); TOTAL PROTEIN 7.2 G/DL (5.7-8.2)
[2024-03-11 17:03] LABS: CPK CREATINE PHOSPHOKINASE 148 U/L (34-145); MB/CK RELATIVE INDEX 0.67 (< OR =4)
[2024-03-11 18:21] LABS: CK-MB VALUE MASS 1.2 NG/ML (<3.6)
[2024-03-11 18:22] LABS: MB/CK RELATIVE INDEX 0.83 (< OR =4)
[2024-03-11 20:26] VITALS: BP 189/86; TEMP 98; O2SAT 95
== END 2024-03-11 20:34 | disposition home or self-care (01) ==
LOC: M ED 13:49
DX: T88.7XXA Unspecified adverse effect of drug or medicament, initial encounter (principal); R00.2 Palpitations; J98.01 Acute bronchospasm; R25.1 Tremor, unspecified; R00.0 Tachycardia, unspecified; I45.10 Unspecified right bundle-branch block; I45.81 Long QT syndrome; G40.909 Epilepsy, unspecified, not intractable, without status epilepticus; I10 Essential (primary) hypertension; K21.9 Gastro-esophageal reflux disease without esophagitis; E78.5 Hyperlipidemia, unspecified; F03.90 Unspecified dementia, unspecified severity, without behavioral disturbance, psychotic disturbance, mood disturbance, and anxiety; Z88.7 Allergy status to serum and vaccine; Z91.013 Allergy to seafood; Z91.018 Allergy to other foods; Z79.52 Long term (current) use of systemic steroids; Z79.82 Long term (current) use of aspirin; Z79.899 Other long term (current) drug therapy

== ENCOUNTER → 2024-06-11 | Outpatient (CLI) | payer MEDICARE, MEDICAID ==
[~2024-06-11] MED LIST changes: +ARIC1TAB PO; +NAPR220C14 PO; +ZONI50CA PO
== END ==
LOC: M WHC 10:35
PROVIDERS: ATTEND Internal Medicine
DX: Z12.31 Encounter for screening mammogram for malignant neoplasm of breast (principal); R92.30 Dense breasts, unspecified

== ENCOUNTER → 2024-08-12 | Outpatient (CLI) | payer MEDICARE, MEDICAID | LOC: M RAD 17:10 | PROVIDERS: ATTEND Student in an Organized Health Care Education/Training Program | DX: R06.02 Shortness of breath (principal) ==

== ENCOUNTER → 2024-08-21 | Outpatient (REF) | payer MEDICARE, MEDICAID | LOC: M LAB REF 17:01 | PROVIDERS: ATTEND Physician Assistant Medical | DX: J01.90 Acute sinusitis, unspecified (principal); R05.9 Cough, unspecified ==